=== PATIENT | female | born 1990 | race Two or more races ===

== ENCOUNTER 2019-02-26 17:46 | Emergency (ER) | payer OTHER ==
[~2019-02-26] VITALS: Ht 157.5 cm; Wt 53.5 kg
--- NOTE | 2019-02-26 17:53 | NUR ---
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
[2019-02-26] MEDS ORDERED: NALOXONE HCL 0.4 MG/ML AMPUL IV ONE (18:00)
[2019-02-26] MEDS ORDERED: ALBUTEROL FS 2.5 MG/3 ML VIAL.NEB NEB ONE (18:00)
[2019-02-26] MEDS ORDERED: IPRATROPIUM NEB FS 0.5 MG/2.5 ML AMPUL.NEB NEB ONE (18:00)
--- NOTE | 2019-02-26 18:00 | NUR ---
IV LINE ESTABLISHED.
[2019-02-26] MEDS ORDERED: NALOXONE HCL 0.4 MG/ML AMPUL ONE (18:03)
--- NOTE | 2019-02-26 18:09 | NUR ---
called RT for treatment
--- NOTE | 2019-02-26 18:10 | NUR ---
TRAIN DISPATCHER AT BEDSIDE FOR XRAY.
[2019-02-26] MEDS ORDERED: IPRATROPIUM NEB FS 0.5 MG/2.5 ML AMPUL.NEB ONE (18:11)
[2019-02-26] MEDS ORDERED: ALBUTEROL FS 2.5 MG/3 ML VIAL.NEB ONE (18:11)
--- NOTE | 2019-02-26 19:06 | NUR ---
REPORT GIVEN TO CASS MYERS FOR BASILIO
[2019-02-26] MEDS ORDERED: predniSONE 20 MG TABLET ONE (19:20)
[2019-02-26] MEDS ORDERED: ONDANSETRON 4 MG TAB.RAPDIS ONE (19:28)
[2019-02-26] MEDS ORDERED: ONDANSETRON 4 MG TAB.RAPDIS SL ONE (19:30)
[2019-02-26] MEDS ORDERED: predniSONE 20 MG TABLET PO ONE (19:30)
--- NOTE | 2019-02-26 19:30 | NUR ---
IV removed. Catheter intact and site benign. Pressure and 4x4 applied to site. No bleeding noted.Patient discharged to home in stable condition. Rx and Written and verbal after care instructions given. Patient verbalizes understanding of instruction. PT WAS ASSISTED TO THE CAR W/ A WC. FRIEND WILL PROVIDE RIDE BACK HOME
[2019-02-26 19:58] VITALS: BP 111/72
== END 2019-02-26 19:30 | disposition home or self-care (01) ==
LOC: ER 17:49
DX: T40.601A Poisoning by unspecified narcotics, accidental (unintentional), initial encounter (principal); J45.909 Unspecified asthma, uncomplicated; R94.31 Abnormal electrocardiogram [ECG] [EKG]; Z88.1 Allergy status to other antibiotic agents; Y92.89 Other specified places as the place of occurrence of the external cause
CPT/HCPCS: 71045; 93005; 94640; 96374; 99284; J2310; J7030; J7512; Q0162